=== PATIENT | female | born 1975 ===

== ENCOUNTER 2024-03-11 05:25 | Day surgery (SDC) | payer OTHER ==
[2024-03-07 09:44] LABS: PH,URINE 5.5 (5.0-8.0); URINE APPEARANCE Clear; URINE BILIRRUBIN Negative (NEGATIVE); URINE BLOOD Negative; URINE COLOR Yellow; URINE GLUCOSE Negative (NEGATIVE); URINE KETONE Negative (NEGATIVE); URINE LEUKOCYTE Moderate; URINE NITRATE Negative; URINE PROTEIN Negative (NEGATIVE); URINE UROBILINOGEN 0.2 E.U./dl
[2024-03-07 09:45] LABS: HEMATOCRIT 36.4 % (36.0-45.00); HEMOGLOBIN 11.7 g/dL (12.0-15.00); MEAN CELL VOLUME 83.2 fL (80.00-100.00); MEAN CORPUSCULAR HEMOGLOBIN 26.7 pg (27.00-32.0); PLATELET COUNT 235 K/uL (150-450); RED BLOOD COUNT 4.37 M/uL (4.00-6.00); RED CELL DISTRIBUTION WIDTH 16.3 % (11.5-14.5)
[2024-03-07 09:49] LABS: URINE EPITHELIAL CELLS 16.1 uL (0.0-38.8); URINE RBC 3.9 uL (0.0-20.8); URINE WBC 87.2 uL (0.0-23.2)
[2024-03-07 09:53] VITALS: BP 127/78
[2024-03-07 10:06] LABS: INR < 0.93; PARTIAL THROMBOPLASTIN TIME 21.1 SECONDS (22.0-34.0); PROTHROMBIN TIME 10.1 SECONDS (9.0-11.5)
[2024-03-07 11:10] LABS: ALBUMIN 3.3 gm/dL (3.4-5.0); BILIRUBIN TOTAL 0.61 mg/dL (0.3-1.2); CALCIUM 9.5 mg/dL (8.5-10.1); CREATININE SERUM 0.7 mg/dL (0.55-1.02); GFR 88.22; GLOBULINA 3.9 G/DL (2.4-3.5); POTASSIUM 3.97 mEq/L (3.5-5.1); TOTAL PROTEIN 7.2 gm/dL (6.4-8.2)
[~2024-03-11] VITALS: Ht 157.5 cm; Wt 102.1 kg
[~2024-03-11 05:25] MED LIST: COZAAR25 MG PO; LIPITOR20 MG PO; PROBIOTIC1 EAC4; SINGULAIR10 MG PO; VITAMIN B-121000 MC4 PO
[2024-03-11] MEDS ORDERED: LIDOCAINE HCL 1%/EPINEPHRINE 20ML VIAL IJ ONE (10:06)
[2024-03-11] MEDS ORDERED: SUGAMMADEX SODIUM 200 MG/2 ML VIAL IV ONE (10:34)
[2024-03-11] MEDS ORDERED: ONDANSETRON HCL 2 MG/ML VIAL ONE (11:08)
[2024-03-11] MEDS ORDERED: ONDANSETRON HCL 2 MG/ML VIAL IV ONE (11:15)
[2024-03-11] MEDS ORDERED: MORPHINE SULFATE 4 MG/ML VIAL IV ONE ×2 (11:35→12:30)
== END 2024-03-11 15:45 | disposition home or self-care (01) ==
LOC: CIR.AMB 05:25
PROVIDERS: ATTEND Surgery
DX: K80.10 Calculus of gallbladder with chronic cholecystitis without obstruction (principal); D21.4 Benign neoplasm of connective and other soft tissue of abdomen; R19.00 Intra-abdominal and pelvic swelling, mass and lump, unspecified site; J45.909 Unspecified asthma, uncomplicated; E78.00 Pure hypercholesterolemia, unspecified; I10 Essential (primary) hypertension